=== PATIENT | male | born 1970 | race Native Hawaiian/Other Pacific Islander ===

== ENCOUNTER 2016-12-06 08:29 | Outpatient (CLI) | payer OTHER | END 2016-12-06 19:07 | disposition home or self-care (01) | LOC: MRI 08:29 | DX: M54.12 Radiculopathy, cervical region (principal); M54.5 Low back pain ==

== ENCOUNTER 2018-05-24 08:51 | Outpatient (CLI) | payer OTHER | END 2018-05-24 19:07 | disposition home or self-care (01) | LOC: RAD 08:51 | DX: M85.89 Other specified disorders of bone density and structure, multiple sites (principal); Z13.820 Encounter for screening for osteoporosis ==

== ENCOUNTER 2019-03-08 21:12 | Emergency (ER) | payer OTHER ==
[~2019-03-08] VITALS: Ht 175.3 cm; Wt 63.5 kg
[2019-03-08 22:23] LABS: PLATELET COUNT 295 K/uL (142-355)
[2019-03-08 22:31] LABS: POTASSIUM 3.8 mmol/L (3.6-5.2)
[2019-03-08 23:14] VITALS: TEMP 101.7
[2019-03-08 23:40] VITALS: BP 166/104
== END 2019-03-08 23:45 | disposition short-term general hospital (02) ==
LOC: ED 21:12
PROVIDERS: Emergency Medicine
DX: K85.90 Acute pancreatitis without necrosis or infection, unspecified (principal); F10.10 Alcohol abuse, uncomplicated; D64.9 Anemia, unspecified
CPT/HCPCS: 36415; 80053; 80307; 80320; 81000; 82150; 83690; 83735; 85027; 96361; 96365; 96375; 99284; J1885; J3411; J3475; J3490

== ENCOUNTER 2019-03-08 23:50 | Outpatient (CLI) | payer OTHER | END 2019-03-09 00:37 | disposition short-term general hospital (02) | LOC: AMB 23:50 | DX: K85.90 Acute pancreatitis without necrosis or infection, unspecified (principal); F10.10 Alcohol abuse, uncomplicated | CPT/HCPCS: A0425; A0427 ==

== ENCOUNTER 2019-04-05 17:17 | Outpatient (CLI) | payer OTHER ==
[2019-04-06] MEDS ORDERED: LYRICA75 MG PO (15:16)
[2019-04-06] MEDS ORDERED: HYDR10TA47 PO (15:17)
== END 2019-04-05 17:26 | disposition short-term general hospital (02) ==
LOC: AMB 17:17
DX: R55 Syncope and collapse (principal)
CPT/HCPCS: A0425; A0427

== ENCOUNTER 2019-04-05 17:32 | Inpatient (IN) | payer OTHER ==
[~2019-04-05] VITALS: Ht 175.3 cm; Wt 59.2 kg
[2019-04-05 17:48] VITALS: BP 147/94; TEMP 100
[2019-04-05 18:11] LABS: PLATELET COUNT 366 K/uL (142-355)
[2019-04-05 18:23] LABS: POTASSIUM 3.8 mmol/L (3.6-5.2)
[2019-04-05 18:52] VITALS: BP 151/97
[2019-04-05 21:14] VITALS: BP 160/103; TEMP 98.9; Ht 175.3 cm; Wt 59.2 kg
[2019-04-05 23:26] VITALS: BP 182/110; TEMP 98.2
[2019-04-06] VITALS (19 sets, daily range): BP systolic 96–191; BP diastolic 58–111; TEMP 97.9–99.2
[2019-04-06 04:06] LABS: PLATELET COUNT 364 K/uL (142-355)
[2019-04-06] MEDS ORDERED: LYRICA75 MG PO (15:16)
[2019-04-06] MEDS ORDERED: HYDR10TA47 PO (15:17)
[2019-04-07] VITALS (24 sets, daily range): BP systolic 120–180; BP diastolic 62–97; TEMP 97.8–98.7
[2019-04-07 05:13] LABS: PLATELET COUNT 206 K/uL (142-355)
[2019-04-07 05:26] LABS: POTASSIUM 3.4 mmol/L (3.6-5.2)
[2019-04-08] VITALS (24 sets, daily range): BP systolic 141–183; BP diastolic 79–112; TEMP 97.1–99.1
[2019-04-08 05:26] LABS: PLATELET COUNT 191 K/uL (142-355)
[2019-04-09] VITALS (23 sets, daily range): BP systolic 96–169; BP diastolic 61–110; TEMP 98–99.2
[2019-04-09 05:44] LABS: PLATELET COUNT 193 K/uL (142-355)
[2019-04-10] VITALS (18 sets, daily range): BP systolic 117–162; BP diastolic 77–108; TEMP 98.2–99
[2019-04-10 06:04] LABS: PLATELET COUNT 223 K/uL (142-355)
[2019-04-10 06:17] LABS: POTASSIUM 3.3 mmol/L (3.6-5.2)
[2019-04-11] VITALS: BP 171/111; TEMP 99.3
[2019-04-11 04:00] VITALS: BP 148/103; TEMP 99.7
[2019-04-11 05:45] LABS: PLATELET COUNT 298 K/uL (142-355)
[2019-04-11 06:04] LABS: POTASSIUM 4.4 mmol/L (3.6-5.2)
== END 2019-04-11 15:40 | disposition home or self-care (01) | DRG 440 ==
LOC: ED 17:32 → MED/SURG 19:55 → ICU 20:12 → MED/SURG 04-10 15:35
PROVIDERS: Internal Medicine; ADMIT Family Medicine
DX: K85.20 Alcohol induced acute pancreatitis without necrosis or infection (principal); K86.0 Alcohol-induced chronic pancreatitis; F10.129 Alcohol abuse with intoxication, unspecified; I10 Essential (primary) hypertension; G89.4 Chronic pain syndrome; Z72.0 Tobacco use; M79.7 Fibromyalgia; K76.0 Fatty (change of) liver, not elsewhere classified; K70.30 Alcoholic cirrhosis of liver without ascites; D64.89 Other specified anemias; E87.6 Hypokalemia; K80.80 Other cholelithiasis without obstruction; K80.20 Calculus of gallbladder without cholecystitis without obstruction
CPT/HCPCS: 36415; 80048; 80053; 80061; 80320; 82150; 82728; 83540; 83690; 83735; 85027; 93005; 96360; 96375; 99285; J0360; J1170; J1200; J1630; J1650; J2060; J2550; J2560; J3411; J3475; J3480; J3490; Q9963

== ENCOUNTER 2019-05-07 13:34 | Outpatient (CLI) | payer OTHER ==
[~2019-05-07 13:34] MED LIST: HYDR10TA47 PO; LYRICA75 MG PO
== END 2019-05-07 13:44 | disposition short-term general hospital (02) ==
LOC: AMB 13:34
DX: S01.112A Laceration without foreign body of left eyelid and periocular area, initial encounter (principal); W18.39XA Other fall on same level, initial encounter; Y92.018 Other place in single-family (private) house as the place of occurrence of the external cause
CPT/HCPCS: A0425; A0427

== ENCOUNTER 2019-05-07 13:44 | Emergency (ER) | payer OTHER ==
[~2019-05-07] VITALS: Ht 175.3 cm; Wt 62.6 kg
[2019-05-07 13:44] VITALS: TEMP 98.4
[2019-05-07 14:56] LABS: POTASSIUM 3.6 mmol/L (3.6-5.2)
[2019-05-07 14:57] LABS: PLATELET COUNT 431 K/uL (142-355)
[2019-05-07 18:06] VITALS: BP 128/83
== END 2019-05-07 18:06 | disposition home or self-care (01) ==
LOC: ED 13:50
PROVIDERS: Emergency Medicine
DX: F10.129 Alcohol abuse with intoxication, unspecified (principal); S09.8XXA Other specified injuries of head, initial encounter; W07.XXXA Fall from chair, initial encounter; Y93.89 Activity, other specified; Y92.89 Other specified places as the place of occurrence of the external cause; K86.1 Other chronic pancreatitis
CPT/HCPCS: 80053; 80320; 82150; 83690; 85027; 90471; 90715; 93005; 96360; 99284

== ENCOUNTER 2019-05-09 15:35 | Outpatient (CLI) | payer OTHER | END 2019-05-09 15:45 | disposition short-term general hospital (02) | LOC: AMB 15:35 | DX: R10.9 Unspecified abdominal pain (principal); G89.18 Other acute postprocedural pain; R41.82 Altered mental status, unspecified | CPT/HCPCS: A0425; A0427 ==

== ENCOUNTER 2019-05-09 15:48 | Inpatient (IN) | payer OTHER ==
[~2019-05-09] VITALS: Ht 175.3 cm; Wt 56.0 kg
[2019-05-09] VITALS (8 sets, daily range): BP systolic 121–153; BP diastolic 76–94; TEMP 99–99.5; Ht 175.3 cm; Wt 56.0 kg
[2019-05-09 16:15] LABS: PLATELET COUNT 426 K/uL (142-355)
[2019-05-09 16:23] LABS: POTASSIUM 3.2 mmol/L (3.6-5.2); SODIUM 139 mmol/L (136-145)
[2019-05-09 16:34] LABS: PARTIAL THROMBOPLASTIN TIME 20.1 SECONDS (24.5-33.6)
[2019-05-10] VITALS (17 sets, daily range): BP systolic 128–171; BP diastolic 78–103; TEMP 97.7–100
[2019-05-10 05:47] LABS: PLATELET COUNT 322 K/uL (142-355)
[2019-05-10 06:11] LABS: POTASSIUM 3.3 mmol/L (3.6-5.2)
[2019-05-11 00:30] VITALS: BP 148/94; TEMP 99.2
[2019-05-11 04:00] VITALS: BP 153/98; TEMP 97.6
[2019-05-11 04:57] LABS: PLATELET COUNT 305 K/uL (142-355)
[2019-05-11 06:10] LABS: POTASSIUM 3.1 mmol/L (3.6-5.2)
[2019-05-11 08:00] VITALS: BP 162/111; TEMP 97.7
== END 2019-05-11 11:45 | disposition home or self-care (01) | DRG 439 ==
LOC: ED 15:48 → ICU 17:33 → MED/SURG 05-10 12:31
PROVIDERS: Student in an Organized Health Care Education/Training Program; ADMIT Family Medicine
DX: K85.20 Alcohol induced acute pancreatitis without necrosis or infection (principal); E46 Unspecified protein-calorie malnutrition; N17.8 Other acute kidney failure; N39.0 Urinary tract infection, site not specified; K86.0 Alcohol-induced chronic pancreatitis; F10.10 Alcohol abuse, uncomplicated; R00.0 Tachycardia, unspecified; E86.0 Dehydration; E87.6 Hypokalemia; E83.42 Hypomagnesemia; M79.7 Fibromyalgia; D63.8 Anemia in other chronic diseases classified elsewhere
CPT/HCPCS: 36415; 36600; 80053; 80307; 80320; 80329; 81000; 82140; 82150; 82550; 82805; 83605; 83690; 83735; 83880; 84484; 85027; 85610; 85730; 86318; 93005; 96360; 96365; 96366; 96374; 99285; J0696; J1170; J1885; J2060; J2175; J2405; J2550; J3411; J3475; J3490

== ENCOUNTER 2019-05-24 09:48 | Outpatient (CLI) | payer OTHER | END 2019-05-24 09:57 | disposition short-term general hospital (02) | LOC: AMB 09:48 | DX: R10.30 Lower abdominal pain, unspecified (principal); G89.18 Other acute postprocedural pain | CPT/HCPCS: A0425; A0427 ==

== ENCOUNTER 2019-05-24 09:59 | Emergency (ER) | payer OTHER ==
[~2019-05-24] VITALS: Ht 175.3 cm; Wt 59.0 kg
[2019-05-24 10:04] VITALS: BP 151/92; TEMP 98.7
[2019-05-24 10:24] LABS: PLATELET COUNT 818 K/uL (142-355)
[2019-05-24 10:40] LABS: POTASSIUM 2.9 mmol/L (3.6-5.2)
== END 2019-05-24 18:04 | disposition home or self-care (01) ==
LOC: ED 09:59
PROVIDERS: Emergency Medicine
DX: R10.11 Right upper quadrant pain (principal); F10.129 Alcohol abuse with intoxication, unspecified; E87.6 Hypokalemia; Z90.49 Acquired absence of other specified parts of digestive tract
CPT/HCPCS: 80053; 80320; 81000; 82150; 83690; 83735; 85027; 96365; 96375; 99284; J1885; J2060; J3490; Q9963

== ENCOUNTER 2019-07-19 07:02 | Emergency (ER) | payer OTHER ==
[~2019-07-19] VITALS: Ht 175.3 cm; Wt 59.0 kg
[2019-07-19 07:06] VITALS: BP 167/883; TEMP 98.2
[2019-07-19 08:03] LABS: PLATELET COUNT 406 K/uL (142-355)
[2019-07-19 08:34] LABS: POTASSIUM 2.8 mmol/L (3.6-5.2)
== END 2019-07-19 11:00 | disposition home or self-care (01) ==
LOC: ED 07:02
PROVIDERS: Family Medicine
DX: R79.89 Other specified abnormal findings of blood chemistry (principal); I82.403 Acute embolism and thrombosis of unspecified deep veins of lower extremity, bilateral; M79.604 Pain in right leg
CPT/HCPCS: 80053; 80307; 80320; 81000; 82150; 82550; 83690; 85027; 85379; 87086; 87088; 96360; 96365; 96375; 96376; 99284; J1885; J3490

== ENCOUNTER 2019-07-19 15:25 | Outpatient (CLI) | payer OTHER | END 2019-07-19 15:37 | disposition short-term general hospital (02) | LOC: AMB 15:25 | DX: M79.605 Pain in left leg (principal); M79.604 Pain in right leg | CPT/HCPCS: A0425; A0429 ==

== ENCOUNTER 2019-07-19 15:36 | Emergency (ER) | payer OTHER ==
[~2019-07-19] VITALS: Ht 175.3 cm; Wt 59.0 kg
[2019-07-19 15:46] VITALS: BP 187/114; TEMP 98.8
== END 2019-07-19 18:17 | disposition home or self-care (01) ==
LOC: ED 15:36
PROVIDERS: Emergency Medicine
DX: R79.89 Other specified abnormal findings of blood chemistry (principal); I82.403 Acute embolism and thrombosis of unspecified deep veins of lower extremity, bilateral; M79.604 Pain in right leg
CPT/HCPCS: 80053; 80320; 96372; 96374; 99284; J1650; J1885; Q9963

== ENCOUNTER 2019-07-19 18:35 | Emergency (ER) | payer OTHER ==
[~2019-07-19] VITALS: Ht 175.3 cm; Wt 59.0 kg
[2019-07-19 19:25] VITALS: BP 202/117; TEMP 99.1
== END 2019-07-19 21:45 | disposition home or self-care (01) ==
LOC: ED 18:35
DX: M54.5 Low back pain (principal); M79.605 Pain in left leg; M79.604 Pain in right leg
CPT/HCPCS: 99281; 99282

== ENCOUNTER → 2019-09-29 09:32 | Outpatient (CLI) | payer OTHER | END | disposition home or self-care (01) | LOC: AMB 09:32 ==